=== PATIENT | male | born 1960 | race Hispanic/Latino ===

== ENCOUNTER 2019-07-23 12:29 | Emergency (ER) | payer MEDICARE ==
[2019-07-23] MEDS ORDERED: ALBUTEROL 2.5 MG/3 ML NEBU IH ONE (14:07)
[2019-07-23] MEDS ORDERED: predniSONE 20 MG TAB PO ONE (14:07)
[2019-07-23] MEDS ORDERED: IPRATROPIUM 0.02% NEBU 2.5 ML IH ONE (14:07)
[2019-07-23 14:47] LABS: Basophils % (Auto) 0.8 % (0.0-1.8); Eosinophils # (Auto) 0.2 K/mm3 (0.0-0.4); Hematocrit 37.3 % (35.5-45.6); Hemoglobin 12.6 gm/dl (11.8-15.2); Lymphocytes % (Auto) 25.9 % (13.4-35.0); Mean Corpuscular HGB Conc 34 % (32-34); Mean Corpuscular Volume 88 fl (84-94); Monocytes # (Auto) 0.4 K/mm3 (0.0-0.8); Monocytes % (Auto) 10.8 % (0.0-7.3); Platelet Count 213 K/mm3 (140-440); Red Blood Count 4.25 M/mm3 (3.65-5.03); Red Cell Distribution Width 14.5 % (13.2-15.2)
--- NOTE | 2019-07-23 14:51 | XRay Report ---
CHEST 1 VIEW INDICATION / CLINICAL INFORMATION: cough. COMPARISON: None available. FINDINGS: SUPPORT DEVICES: None. HEART / MEDIASTINUM: No significant abnormality. LUNGS / PLEURA: The lungs are mildly hyperinflated but appear grossly clear otherwise. No evidence of pneumonia or significant pleural effusion. No pneumothorax. ADDITIONAL FINDINGS: No significant additional findings. IMPRESSION: 1. Hyperinflation of the lungs consistent with COPD. No superimposed acute process noted. Signer Name: Edita Quijano MD Signed: 07/23/2019 2:46 PM Workstation Name: [id number]
[2019-07-23 15:09] LABS: BUN/Creatinine Ratio 19; Blood Urea Nitrogen 13 mg/dL (9-20); Calcium 8.7 mg/dL (8.4-10.2); Hemolysis Index 4
--- NOTE | 2019-07-23 16:22 | Emergency Department Report ---
ED General Adult HPI - General Chief complaint: Dyspnea/Respdistress Stated complaint: HURTS TO BREATH Time Seen by Provider: 07/23/19 12:52 Source: patient Mode of arrival: Ambulatory Limitations: No Limitations - History of Present Illness Initial comments: Patient is a 59-year-old male who presents with shortness of breath that occurred today. Patient states that hurts him when he breathes. Smoking makes it worse nothing makes it better. Patient is a pack per day smoker. Patient's shortness of breath is moderate he's been having some slight productive cough. Patient denies having any fevers or chills he denies having any chest pain when he is not coughing. - Related Data Previous Rx's Medication Instructions Recorded Last Taken Type ALBUTEROL NEB's [Proventil 0.083% 2.5 mg IH TID PRN #1 box 07/23/19 Unknown Rx NEBS] Nebulizer and Compressor [[place] 1 each MC Q6H #1 each 07/23/19 Unknown Rx Choice Nebulizer] predniSONE [Deltasone] 20 mg PO BID #10 tab 07/23/19 Unknown Rx Allergies Allergy/AdvReac Type Severity Reaction Status Date / Time methadone Allergy Swelling Verified 07/23/19 12:31 tetracycline Allergy Rash Verified 07/23/19 12:31 ED Review of Systems ROS: Stated complaint: HURTS TO BREATH Other details as noted in HPI Constitutional: denies: chills, fever Eyes: denies: eye pain, eye discharge, vision change ENT: denies: ear pain, throat pain Respiratory: denies: cough, shortness of breath, wheezing Cardiovascular: denies: chest pain, palpitations Endocrine: no symptoms reported Gastrointestinal: denies: abdominal pain, nausea, diarrhea Genitourinary: denies: urgency, dysuria Musculoskeletal: denies: back pain, joint swelling, arthralgia Skin: denies: rash, lesions Neurological: denies: headache, weakness, paresthesias Psychiatric: denies: anxiety, depression Hematological/Lymphatic: denies: easy bleeding, easy bruising ED Past Medical Hx - Medications Home Medications: Home Medications Medication Instructions Recorded Confirmed Last Taken Type ALBUTEROL NEB's [Proventil 0.083% 2.5 mg IH TID PRN #1 box 07/23/19 Unknown Rx NEBS] Nebulizer and Compressor [[place] 1 each MC Q6H #1 each 07/23/19 Unknown Rx Choice Nebulizer] predniSONE [Deltasone] 20 mg PO BID #10 tab 07/23/19 Unknown Rx ED Physical Exam - General Limitations: No Limitations General appearance: alert, in no apparent distress - Head Head exam: Present: atraumatic, normocephalic - Eye Eye exam: Present: normal appearance - ENT ENT exam: Present: mucous membranes moist - Neck Neck exam: Present: normal inspection - Respiratory Respiratory exam: Present: normal lung sounds bilaterally. Absent: respiratory distress - Cardiovascular Cardiovascular Exam: Present: regular rate, normal rhythm. Absent: systolic murmur, diastolic murmur, rubs, gallop - GI/Abdominal GI/Abdominal exam: Present: soft, normal bowel sounds - Rectal Rectal exam: Present: deferred - Extremities Exam Extremities exam: Present: normal inspection - Back Exam Back exam: Present: normal inspection - Neurological Exam Neurological exam: Present: alert, oriented X3 - Psychiatric Psychiatric exam: Present: normal affect, normal mood - Skin Skin exam: Present: warm, dry, intact, normal color. Absent: rash ED Medical Decision Making - Lab Data Result diagrams: 07/23/19 14:33 07/23/19 14:33 Lab Results 07/23/19 07/23/19 Range/Units 14:33 14:33 WBC 3.9 L (4.5-11.0) K/mm3 RBC 4.25 (3.65-5.03) M/mm3 Hgb 12.6 (11.8-15.2) gm/dl Hct 37.3 (35.5-45.6) % MCV 88 (84-94) fl MCH 30 (28-32) pg MCHC 34 (32-34) % RDW 14.5 (13.2-15.2) % Plt Count 213 (140-440) K/mm3 Lymph % (Auto) 25.9 (13.4-35.0) % [place] % (Auto) 10.8 H (0.0-7.3) % Eos % (Auto) 4.0 (0.0-4.3) % Baso % (Auto) 0.8 (0.0-1.8) % Lymph # 1.0 L (1.2-5.4) K/mm3 [place] # 0.4 (0.0-0.8) K/mm3 Eos # 0.2 (0.0-0.4) K/mm3 Baso # 0.0 (0.0-0.1) K/mm3 Seg Neutrophils % 58.5 (40.0-70.0) % Seg Neutrophils # 2.3 (1.8-7.7) K/mm3 Sodium 140 (137-145) mmol/L Potassium 4.3 (3.6-5.0) mmol/L Chloride 102.2 (98-107) mmol/L Carbon Dioxide 27 (22-30) mmol/L Anion Gap 15 mmol/L BUN 13 (9-20) mg/dL Creatinine 0.7 L (0.8-1.5) mg/dL Estimated GFR > 60 ml/min BUN/Creatinine Ratio 19 % Glucose 92 (75-100) mg/dL Calcium 8.7 (8.4-10.2) mg/dL Troponin T < 0.010 (0.00-0.029) ng/mL - Radiology Data Radiology results: report reviewed, image reviewed Chest x-ray: Shows upper inflated lungs consistent with COPD - Medical Decision Making Chief medical diagnosis: COPD exacerbation differential medical diagnosis: Pneumonia, bronchitis I will get chest x-ray breathing treatment and steroids and we'll get blood work Issuance diagnostic workup was unremarkable I will discharge patient from the emergency department. Critical care attestation.: If time is entered above; I have spent that time in minutes in the direct care of this critically ill patient, excluding procedure time. ED Disposition Clinical Impression: COPD exacerbation, Cough Disposition: DC-01 TO HOME OR SELFCARE Is pt being admited?: No Does the pt Need Aspirin: No Condition: Stable Instructions: Chronic Obstructive Pulmonary Disease (ED) Prescriptions: Nebulizer and Compressor [[place] Choice Nebulizer] 1 each MC Q6H #1 each predniSONE [Deltasone] 20 mg PO BID #10 tab ALBUTEROL NEB's [Proventil 0.083% NEBS] 2.5 mg IH TID PRN #1 box PRN Reason: Wheezing Referrals: PRIMARY CARE, [Primary Care Provider] - 3-5 Days
[2019-07-23 16:47] VITALS: BP 109/71
== END 2019-07-23 16:53 | disposition home or self-care (01) ==
LOC: ED 12:29
DX: J44.1 Chronic obstructive pulmonary disease with (acute) exacerbation (principal); Z88.8 Allergy status to other drugs, medicaments and biological substances; Z79.899 Other long term (current) drug therapy
CPT/HCPCS: 36415; 71046; 80048; 84484; 85025; 94640; 99284; J7512; 94644

== ENCOUNTER 2019-08-18 08:59 | Emergency (ER) | payer MEDICARE ==
[2019-08-18] MEDS ORDERED: ONDANSETRON 4 MG/2 ML INJ IV ONE (09:28)
[2019-08-18] MEDS ORDERED: SODIUM CHLORIDE 0.9% 1000 ML 1,000 ML IV ONE (09:28)
--- NOTE | 2019-08-18 09:31 | Emergency Department Report ---
Vomiting/Diarrhea - HPI Chief Complaint: Nausea/Vomiting/Diarrhea Stated Complaint: V/D/N Time Seen by Provider: 08/18/19 09:11 Duration: 1 Day Severity: severe Nausea/Vomiting Severity: Moderate Diarrhea Severity: Mild Pain Severity: None Symptoms: Yes Watery Diarrhea, Yes Able to Tolerate Fluids, No Bloody diarrhea, No Fever, No Recent Unusual Foods (ate pizza a quick trip), No Recent Untreated Water, No Recent use of Antibiotics, No Family w/ Similar Symptoms, No Contacts w/ Similar Symptoms, No Rash, No Hematuria, No Recent URI Symptoms Other History: This is a 59-year-old male who presents to the emergency room with nausea, vomiting, and diarrhea for 1 day. Patient states he ate pizza from [employer] last night and been sick every since. He reports that everyone ate pizza in home is sick. Patient's pain is an rethinking eat and drink is coming back out. He denies abdominal pain, fever, chills, tarry stools, hematuria, urinary frequency, or urgency. ED Review of Systems ROS: Stated complaint: V/D/N Other details as noted in HPI Constitutional: denies: chills, fever Respiratory: denies: cough, shortness of breath, wheezing Cardiovascular: denies: chest pain, palpitations Gastrointestinal: nausea, vomiting, diarrhea. denies: abdominal pain, constipation, hematemesis, melena, hematochezia Genitourinary: denies: urgency, dysuria Musculoskeletal: denies: back pain, joint swelling, arthralgia Skin: denies: rash, lesions Neurological: denies: headache, weakness, paresthesias Psychiatric: denies: anxiety, depression ED Past Medical Hx - Past Medical History Hx Heart Attack/AMI: Yes (x2) Hx Psychiatric Treatment: Yes ([facility] for depression) Hx Asthma: Yes Hx COPD: Yes - Surgical History Additional Surgical History: Back surg x3, shoulder R surg, knee R surg - Social History Smoking Status: Current Every Day Smoker Substance Use Type: None - Medications Home Medications: Home Medications Medication Instructions Recorded Confirmed Last Taken Type ALBUTEROL NEB's [Proventil 0.083% 2.5 mg IH TID PRN #1 box 07/23/19 Unknown Rx NEBS] Nebulizer and Compressor [[place] 1 each MC Q6H #1 each 07/23/19 Unknown Rx Choice Nebulizer] predniSONE [Deltasone] 20 mg PO BID #10 tab 07/23/19 Unknown Rx Ondansetron [Zofran Odt] 4 mg PO Q8HR PRN #20 tab.rapdis 08/18/19 Unknown Rx Vomiting Diarrhea Exam - Exam General: Vital signs noted. No distress. Alert and acting appropriately. HEENT: Yes Moist Mucous Membranes, No Pharyngeal Erythema, No Pharyngeal Exudates, No Rhinorrhea, No Conjuctival Injection, No Frontal Tenderness, No Maxillary Tenderness Neck: No Adenopathy, No Rigidity Lungs: Yes Clear Lung Sounds, Yes Good Air Exchange, No Wheezes, No Stridor, No Cough, No Nasal Flaring, No Retractions, No Use of Accessory Muscles Heart exam: Regular: Yes, Murmur: No, Tachycardia: No Abdomen: Tenderness: No, Peritoneal Signs: No, Distention: No, Hyperactive Bowel sounds: No Skin exam: Rash: No, Edema: No, Normal turgor: Yes Neurologic: Alert and oriented, no deficits. Musculoskeletal: Unremarkable. ED Course Vital Signs 08/18/19 08/18/19 09:06 09:25 Temperature 98 F Pulse Rate 86 Respiratory 18 18 Rate Blood Pressure 90/64 O2 Sat by Pulse 96 96 Oximetry ED Medical Decision Making - Lab Data Result diagrams: 08/18/19 09:40 08/18/19 09:40 Lab Results 08/18/19 08/18/19 08/18/19 Range/Units 09:40 09:40 10:07 WBC 4.9 (4.5-11.0) K/mm3 RBC 4.25 (3.65-5.03) M/mm3 Hgb 12.5 (11.8-15.2) gm/dl Hct 37.1 (35.5-45.6) % MCV 87 (84-94) fl MCH 29 (28-32) pg MCHC 34 (32-34) % RDW 14.6 (13.2-15.2) % Plt Count 221 (140-440) K/mm3 Lymph % (Auto) 24.5 (13.4-35.0) % [place] % (Auto) 6.6 (0.0-7.3) % Eos % (Auto) 2.8 (0.0-4.3) % Baso % (Auto) 0.8 (0.0-1.8) % Lymph # 1.2 (1.2-5.4) K/mm3 [place] # 0.3 (0.0-0.8) K/mm3 Eos # 0.1 (0.0-0.4) K/mm3 Baso # 0.0 (0.0-0.1) K/mm3 Seg Neutrophils % 65.3 (40.0-70.0) % Seg Neutrophils # 3.2 (1.8-7.7) K/mm3 Sodium 141 (137-145) mmol/L Potassium 4.4 (3.6-5.0) mmol/L Chloride 105.7 (98-107) mmol/L Carbon Dioxide 24 (22-30) mmol/L Anion Gap 16 mmol/L BUN 16 (9-20) mg/dL Creatinine 0.8 (0.8-1.5) mg/dL Estimated GFR > 60 ml/min BUN/Creatinine Ratio 20 % Glucose 92 (75-100) mg/dL Calcium 8.8 (8.4-10.2) mg/dL Total Bilirubin 0.20 (0.1-1.2) mg/dL AST 17 (5-40) units/L ALT 14 (7-56) units/L Alkaline Phosphatase 67 (35-129) units/L Total Protein 6.6 (6.3-8.2) g/dL Albumin 3.8 L (3.9-5) g/dL Albumin/Globulin Ratio 1.4 % Urine Color Yellow (Yellow) Urine Turbidity Clear (Clear) Urine pH 5.0 (5.0-7.0) Ur Specific [place] 1.024 (1.003-1.030) Urine Protein <15 mg/dl (Negative) mg/dL Urine Glucose (UA) Neg (Negative) mg/dL Urine Ketones Neg (Negative) mg/dL Urine Blood Neg (Negative) Urine Nitrite Neg (Negative) Urine Bilirubin Neg (Negative) Urine Urobilinogen 2.0 (<2.0) mg/dL Ur Leukocyte Esterase Neg (Negative) Urine WBC (Auto) 3.0 (0.0-6.0) /HPF Urine RBC (Auto) < 1.0 (0.0-6.0) /HPF U Epithel Cells (Auto) 2.0 (0-13.0) /HPF Urine Mucus Few /HPF - Medical Decision Making Patient is stable and was examined by me. Vitals stable. Obtained CMP, CBC, & UA. All labs are unremarkable. Given zofran odt 4 mg po and normal saline 1L IV once in ER. Plan to start zofran for gastroenteritis. Instructed to take Imodium for diarrhea. Increase fluid intake. Discussed plan with patient and agreed to plan. No further questions noted by the patient. Discharged home in stable condition. Follow up with PCP in 2-3 days. Critical care attestation.: If time is entered above; I have spent that time in minutes in the direct care of this critically ill patient, excluding procedure time. ED Disposition Clinical Impression: Gastroenteritis, Nausea and vomiting in adult patient Disposition: - TO HOME OR SELFCARE Is pt being admited?: No Condition: Stable Instructions: Gastroenteritis (ED), Acute Nausea and Vomiting (ED) Additional Instructions: Frequent hand washing is important to reduce spread. Prompt disinfection of contaminated surfaces with household chlorine bleach- based engineer fishing vessel and washing of soiled clothing and bedding should be advised. If food or water is thought to be contaminated, it should be avoided. Increase fluid intake. Drinks high in sugars such as carbonated soft drinks, fruit juice, and highly sugared liquids should be avoided. Prescriptions: Ondansetron [Zofran Odt] 4 mg PO Q8HR PRN #20 tab.rapdis PRN Reason: Nausea And Vomiting Referrals: [facility] [Outside] - 3-5 Days [facility] [Outside] - 3-[address] [facility] [Outside] - 3-5 Days Time of Disposition: 10:49
[2019-08-18 09:58] LABS: Basophils % (Auto) 0.8 % (0.0-1.8); Eosinophils # (Auto) 0.1 K/mm3 (0.0-0.4); Eosinophils % (Auto) 2.8 % (0.0-4.3); Hematocrit 37.1 % (35.5-45.6); Hemoglobin 12.5 gm/dl (11.8-15.2); Lymphocytes # (Auto) 1.2 K/mm3 (1.2-5.4); Lymphocytes % (Auto) 24.5 % (13.4-35.0); Mean Corpuscular HGB Conc 34 % (32-34); Mean Corpuscular Volume 87 fl (84-94); Monocytes # (Auto) 0.3 K/mm3 (0.0-0.8); Monocytes % (Auto) 6.6 % (0.0-7.3); Platelet Count 221 K/mm3 (140-440); Red Blood Count 4.25 M/mm3 (3.65-5.03); Red Cell Distribution Width 14.6 % (13.2-15.2)
[2019-08-18 10:21] LABS: Alanine Aminotransferase 14 units/L (7-56); Albumin 3.8 g/dL (3.9-5); BUN/Creatinine Ratio 20; Blood Urea Nitrogen 16 mg/dL (9-20); Calcium 8.8 mg/dL (8.4-10.2); Hemolysis Index 7
[2019-08-18 10:33] LABS: Bilirubin,Urine NEG (Negative); Blood,Urine NEG (Negative); Color,Urine Yellow (Yellow); Mucus,Urine FEW /HPF; Protein,Urine <15 mg/dL mg/dL (Negative); RBC,Urine < 1.0 /HPF (0.0-6.0)
[2019-08-18 10:59] VITALS: BP 113/79
== END 2019-08-18 10:59 | disposition home or self-care (01) ==
LOC: ED 08:59
DX: K52.9 Noninfective gastroenteritis and colitis, unspecified (principal); F32.9 Major depressive disorder, single episode, unspecified; J44.9 Chronic obstructive pulmonary disease, unspecified; F17.200 Nicotine dependence, unspecified, uncomplicated; Z88.5 Allergy status to narcotic agent; Z88.1 Allergy status to other antibiotic agents; Z79.899 Other long term (current) drug therapy
CPT/HCPCS: 36415; 80053; 81001; 85025; 96361; 96374; 99283; J2405; J7030

== ENCOUNTER 2020-03-23 13:07 | Emergency (ER) | payer MEDICARE ==
[2020-03-23 13:21] VITALS: BP 113/66
--- NOTE | 2020-03-23 13:49 | Event Note ---
ED Screening Note ED Screening Note: lower back pain that began 3 days ago no fall or injury states that he has had two surgeries on back and has scoliosis states that he is now having discomfort with walking and difficulty standing up This initial assessment/diagnostic orders/clinical plan/treatment(s) is/are subject to change based on patients health status, clinical progression and re- assessment by fellow clinical providers in the ED. Further treatment and workup at subsequent clinical providers discretion. Patient/guardian urged not to elope from the ED as their condition may be serious if not clinically assessed and managed. Initial orders include: ACC eval
[2020-03-23] MEDS ORDERED: IBUPROFEN 800 MG TAB PO ONE (17:21)
--- NOTE | 2020-03-23 17:21 | Emergency Department Report ---
ED Back Pain/Injury HPI - General Chief Complaint: Back Pain/Injury Stated Complaint: EXTREME BACK PAIN Time Seen by Provider: 03/23/20 13:46 Source: patient Limitations: No Limitations - History of Present Illness Initial Comments: 59-year-old -Azerbaij[place] male presents to the emergency room for acute on chronic back pain x3 days. Patient states he has a history of back surgery and neck surgery. Patient states his surgery was done in [place]. Patient reports that he takes gabapentin last dose was 7 AM. Patient reports he has not taken anything else for his pain. Patient denies any recent traumas or injury. He denies any loss of bowel or urine. Patient has a past medical history of asthma COPD has had a heart attack x2 depression and surgery on his back neck and right knee. Patient is allergic to methadone and tetracycline. MD Complaint: back pain - Related Data Previous Rx's Medication Instructions Recorded Last Taken Type ALBUTEROL NEB's [Proventil 0.083% 2.5 mg IH TID PRN #1 box 07/23/19 Unknown Rx NEBS] Nebulizer and Compressor [[place] 1 each MC Q6H #1 each 07/23/19 Unknown Rx Choice Nebulizer] predniSONE [Deltasone] 20 mg PO BID #10 tab 07/23/19 Unknown Rx Ondansetron [Zofran Odt] 4 mg PO Q8HR PRN #20 tab.rapdis 08/18/19 Unknown Rx Allergies Allergy/AdvReac Type Severity Reaction Status Date / Time methadone Allergy Swelling Verified 08/18/19 09:05 tetracycline Allergy Rash Verified 08/18/19 09:05 ED Review of Systems ROS: Stated complaint: EXTREME BACK PAIN Other details as noted in HPI ED Past Medical Hx - Past Medical History Previous Medical History?: Yes Hx Heart Attack/AMI: Yes (x2) Hx Psychiatric Treatment: Yes ([facility] for depression) Hx Asthma: Yes Hx COPD: Yes Additional medical history: Scoliosis - Surgical History Past Surgical History?: Yes Additional Surgical History: Back surg x3, shoulder R surg, knee R surg - Social History Smoking Status: Current Every Day Smoker Substance Use Type: None - Medications Home Medications: Home Medications Medication Instructions Recorded Confirmed Last Taken Type ALBUTEROL NEB's [Proventil 0.083% 2.5 mg IH TID PRN #1 box 07/23/19 Unknown Rx NEBS] Nebulizer and Compressor [[place] 1 each MC Q6H #1 each 07/23/19 Unknown Rx Choice Nebulizer] predniSONE [Deltasone] 20 mg PO BID #10 tab 07/23/19 Unknown Rx Ondansetron [Zofran Odt] 4 mg PO Q8HR PRN #20 tab.rapdis 08/18/19 Unknown Rx ED Physical Exam - General Limitations: No Limitations General appearance: alert, in no apparent distress - Head Head exam: Present: atraumatic, normocephalic - Eye Eye exam: Present: normal appearance - ENT ENT exam: Present: mucous membranes moist - Neck Neck exam: Present: normal inspection - Respiratory Respiratory exam: Present: normal lung sounds bilaterally. Absent: respiratory distress - Cardiovascular Cardiovascular Exam: Present: regular rate, normal rhythm. Absent: systolic murmur, diastolic murmur, rubs, gallop - Extremities Exam Extremities exam: Present: normal inspection - Back Exam Back exam: Present: full ROM, paraspinal tenderness - Neurological Exam Neurological exam: Present: alert, oriented X3, normal gait - Psychiatric Psychiatric exam: Present: normal affect, normal mood - Skin Skin exam: Present: warm, dry, intact, normal color. Absent: rash ED Course Vital Signs 03/23/20 03/23/20 13:19 18:07 Temperature 98.2 F Pulse Rate 99 H Respiratory 16 18 Rate Blood Pressure 113/66 [Right] O2 Sat by Pulse 93 Oximetry ED Medical Decision Making - Radiology Data Radiology results: report reviewed Print Report Referring Physician:CORDELL VIEYRAPatient Name:BREANNA PEARCEPatient ID:[id number] of :[id number]:MaleAccession:[id number] Date:[id number] Status:Finalized Findings [facility] [address] [place] [address] XRay Report Signed Patient: BREANNA PEARCE MR#: [id number] : 1960 Acct:[id number] Age/Sex: 59 / M ADM Date: 03/23/20 Loc: ED Attending Dr: Ordering Physician: CURTIS PRITCHETT Date of Service: 03/23/20 Procedure(s): XR spine thoracolumbar 2V Accession Number(s): [id number] cc: CURTIS PRITCHETT Fluoro Time In Minutes: THORACOLUMBAR SPINE 2 VIEWS INDICATION / CLINICAL INFORMATION: Mid back pain COMPARISON: None available. FINDINGS: BONES / JOINT(S): There is mild thoracolumbar levoscoliosis with mild to moderate spondylosis, most prominent in the upper lumbar spine. The pedicles are intact. There is no evidence of fracture, subluxation or destructive lesion. SOFT TISSUES: No significant abnormality. ADDITIONAL FINDINGS: Prior cholecystectomy. Signer Name: Ti Hays MD Signed: 03/23/2020 5:42 PM Workstation Name: [id number] Transcribed By: RT Dictated By: Ti Hays MD Electronically Authenticated By: Ti Hays MD Signed Date/Time: 03/23/20 174 - Medical Decision Making 59-year-old -Azerbaijani male presents to the emergency room for acute on chronic back pain x3 days. Patient states he has a history of back surgery and neck surgery. Patient states his surgery was done in [place]. Patient reports that he takes gabapentin last dose was 7 AM. Patient reports he has not taken anything else for his pain. Patient denies any recent traumas or injury. He denies any loss of bowel or urine. Patient has a past medical history of asthma COPD has had a heart attack x2 depression and surgery on his back neck and right knee. Patient is allergic to methadone and tetracycline. X-ray is negative for any acute findings. Take Tylenol or ibuprofen for pain management and follow-up with a forestry extension specialist. Critical care attestation.: If time is entered above; I have spent that time in minutes in the direct care of this critically ill patient, excluding procedure time. ED Disposition Clinical Impression: Acute exacerbation of chronic low back pain Disposition: DC-01 TO HOME OR SELFCARE Is pt being admited?: No Does the pt Need Aspirin: No Condition: Stable Instructions: Chronic Back Pain (ED) Additional Instructions: X-ray shows no acute abnormalities shows chronic disease of back. Recommend to follow-up with a forestry extension specialist. Tylenol or ibuprofen as needed for pain management. Referrals: [facility]IN [Other] - 3-5 Days [facility] [Provider Group] - 3-5 Days [facility] [Provider Group] - 3-5 Days
--- NOTE | 2020-03-23 17:47 | XRay Report ---
THORACOLUMBAR SPINE 2 VIEWS INDICATION / CLINICAL INFORMATION: Mid back pain COMPARISON: None available. FINDINGS: BONES / JOINT(S): There is mild thoracolumbar levoscoliosis with mild to moderate spondylosis, most p rominent in the upper lumbar spine. The pedicles are intact. There is no evidence of fracture, sublux ation or destructive lesion. SOFT TISSUES: No significant abnormality. ADDITIONAL FINDINGS: Prior cholecystectomy. Signer Name: Ti Hays MD Signed: 03/23/2020 5:42 PM Workstation Name: [id number]
== END 2020-03-23 18:44 | disposition home or self-care (01) ==
LOC: ED 13:07
DX: M54.5 Low back pain (principal); G89.29 Other chronic pain; I25.2 Old myocardial infarction; J44.9 Chronic obstructive pulmonary disease, unspecified; F17.200 Nicotine dependence, unspecified, uncomplicated; Z98.890 Other specified postprocedural states; Z79.899 Other long term (current) drug therapy; Z88.8 Allergy status to other drugs, medicaments and biological substances
CPT/HCPCS: 72080